=== PATIENT | male | born 1990 | race Two or more races ===

== ENCOUNTER 2017-02-17 08:19 | Day surgery (SDC) | payer OTHER ==
[~2017-02-17] VITALS: Ht 175.3 cm; Wt 87.5 kg
[2017-02-17 08:39] VITALS: BP 151/91
[2017-02-17 10:50] VITALS: BP 137/76
== END 2017-02-17 10:50 | disposition home or self-care (01) ==
LOC: DS 08:19 → GI 10:00 → DS 10:50 → GI 11:30 → OR 11:30
PROVIDERS: Internal Medicine Gastroenterology
PROC: 0DJD8ZZ Inspection of Lower Intestinal Tract, Via Natural or Artificial Opening Endoscopic (ICD-10-PCS; principal; 2017-02-17 10:00)
DX: K57.90 Diverticulosis of intestine, part unspecified, without perforation or abscess without bleeding (principal); K64.8 Other hemorrhoids
CPT/HCPCS: 45378; J1200; J2250; J2310; J3010; J3490

== ENCOUNTER 2017-07-28 14:53 | Inpatient (IN) | payer OTHER ==
[~2017-07-28] VITALS: Ht 175.3 cm; Wt 91.0 kg
--- NOTE | 2017-07-28 15:09 | NUR ---
PT AMBULATORY WITH STEADY GAIT TO RESTROOM AND BACK TO TREATMENT AREA WITH NO INCIDENCE, MSE COMPLETED BY DR. WANG
--- NOTE | 2017-07-28 15:11 | NUR ---
PT BIB FAMILY MEMBER FOR C/O RUQ ABD PAIN X 2 DAYS WHICH PT REPORTS HAS BEEN CONSTANT, PT STS "I FELT SHORT OF BREATH AT NIGHT LAST NIGHT FROM THE PAIN AFTER LAYING FLAT" PT DENIES EVER FEELING SOB AFTERWARDS, ABD SOFT, SLIGHT TENDERNESS NOTED UPON PALPATION TO RUQ AND EPIGASTRIC AREA OF ABD, PT DENIES N/V/D, REPORTS CONSTIPATION WITH LBM THIS MORNING STATING WAS DIFFICULT, PT DENIES URINARY SX, DENIES ANY PAST SURGICAL HX, PT AAOX4, RESP EVEN AND UNLABORED, IN NO ACUTE DISTRESS, WILL CONTINUE TO MONITOR
--- NOTE | 2017-07-28 15:21 | NUR ---
PT MEDICATED PER MD ORDER, PLEASE SEE EMAR, PT TOLERATED WELL, PT RESTING IN BED IN A POSITION OF COMFORT WITH FAMILY MEMBER AT BEDSIDE, WARM BLANKET PROVIDED, CALL LIGHT WITHIN REACH, WILL CONTINUE TO MONITOR
--- NOTE | 2017-07-28 15:39 | NUR ---
PORTABLE ULTRASOUND AT BEDSIDE AT THIS TIME
[2017-07-28 15:46] LABS: BASOPHIL % 0.1 % (0-2); PLATELET COUNT 251 x10^3mcL (130-400); RED CELL DISTRIBUTION WIDTH 12.9 % (11.5-14.5)
[2017-07-28 15:59] LABS: CALCIUM 8.8 mg/dL (8.5-10.1); CARBON DIOXIDE 29.2 mmol/L (21-32); CHLORIDE SERUM 101 mmol/L (98-107); CREATININE SERUM 0.9 mg/dL (0.7-1.3); GFR1 > 60 mL/min; GLUCOSE SERUM 109 mg/dL (74-106); POTASSIUM SERUM 4.1 mmol/L (3.5-5.1); SODIUM SERUM 139 mmol/L (136-145)
[2017-07-28 16:04] LABS: ALBUMIN 3.7 g/dL (3.4-5.0); ALKALINE PHOSPHATASE 93 U/L (46-116); ALT/SGPT 25 U/L (16-63); AMYLASE 50 U/L (25-115); AST/SGOT 16 U/L (15-37); BILIRUBIN TOTAL 0.8 mg/dL (0.20-1.00); LIPASE 86 IU/L (73-393); TOTAL PROTEIN, SERUM 7.8 g/dL (6.4-8.2)
--- NOTE | 2017-07-28 17:08 | NUR ---
PT TAKEN TO CT VIA GURNEY AND BACK TO TREATMENT AREA WITH NO INCIDENCE
--- NOTE | 2017-07-28 17:31 | NUR ---
PT DENIES ANY PAIN AT THIS TIME, PT AMBULATORY WITH STEADY GAIT TO RESTROOM AT THIS TIME
--- NOTE | 2017-07-28 17:36 | NUR ---
PT BACK TO TREATMENT AREA WITH NO INCIDENCE, PT RESTING BACK IN BED IN A POSITION OF COMFORT WITH FAMILY MEMBER AT BEDSIDE, CALL SUHAS GANDHI, WILL CONTINUE TO MONITOR
--- NOTE | 2017-07-28 18:37 | NUR ---
PT RESTING IN BED IN A POSITION OF COMFORT WITH FAMILY MEMBER AT BEDSIDE, IN NO ACUTE DISTRESS, CALL LIGHT WITHIN REACH
[2017-07-28] MEDS ORDERED: PRINIVIL20 MG PO (18:47)
[2017-07-28] MEDS ORDERED: ZESTRIL20 MG PO (18:48)
[2017-07-28] MEDS ORDERED: OMEPRAZOLE40 M1 PO (18:48)
--- NOTE | 2017-07-28 19:03 | NUR ---
CHANGE OF SHIFT REPORT GIVEN BY MADALYN BALBUENA TO CONTINUE CARE.
--- NOTE | 2017-07-28 19:43 | NUR ---
REPORT GIVEN TO MANE TO ASSUME CARE OF PT
--- NOTE | 2017-07-28 19:50 | NUR ---
RECEIVED PT FROM ED VIA GUERNEY, CAME IN DUE TO ABDOMINAL PAIN X2 DAYS. AAOX4. NO SOB NOTED. DENIES CHEST PAIN/PRESSURE, SINUS TACHYCARDIA ON THE MONITOR, HR AT 106. C/O 1/10 ABDOMINAL PAIN. DENIES NAUSEA/VOMITING. MOTHER AT BEDSIDE. SIDE RAILS UPX2. CALL LIGHT ON REACH. MEDICAL STUDENT AT BEDSIDE. LUTX=780.2, COOLING MEASURES INITIATED. ENDORSED TO PRIMARY NURSE SUPIN FOR CONTINUITY OF CARE.
[2017-07-28 19:53] VITALS: BP 148/85
[2017-07-28 19:57] LABS: FREE T4 1.09 ng/dL (0.76-1.46); FREE THYROXINE INDEX 3.1 ug/dL (1.4-4.5); T3 TOTAL 1.18 ng/mL; T4(THYROXINE) 8.8 ug/dL (4.7-13.3)
[2017-07-28 20:00] VITALS: Ht 175.3 cm; Wt 91.0 kg
--- NOTE | 2017-07-28 20:23 | NUR ---
KEPT NPO, DISCUSSED PLAN OF CARE WITH PATIENT, STS PAIN IS TOLERABLE AT THIS TIME.
[2017-07-28 20:26] LABS: CHOLESTEROL/HDL RATIO 2.7; MAGNESIUM 2.1 mg/dL (1.8-2.4); PHOSPHOROUS 3.9 mg/dL (2.5-4.9)
--- NOTE | 2017-07-28 21:54 | NUR ---
ULTRASOUND OF ABDOMEN ONGOING AT BEDSIDE.
--- NOTE | 2017-07-28 22:01 | NUR ---
IVF NS AT 100ML/HR AND UNASYN IVPB STATED, NO ADVERSE REACTION NOTED.
--- NOTE | 2017-07-28 23:15 | NUR ---
NOTED ORDER FOR ATIVAN 1MG IV X1, PATIENT APPEARS CALM, REFUSED ATIVAN AT THIS TIME.
[2017-07-29 05:52] VITALS: BP 123/63
[2017-07-29 06:12] LABS: BASOPHIL % 0.2 % (0-2); PLATELET COUNT 232 x10^3mcL (130-400); RED CELL DISTRIBUTION WIDTH 13.3 % (11.5-14.5)
[2017-07-29 06:26] LABS: CALCIUM 8.6 mg/dL (8.5-10.1); CHLORIDE SERUM 106 mmol/L (98-107); GFR1 > 60 mL/min; GLUCOSE SERUM 92 mg/dL (74-106); MAGNESIUM 2.3 mg/dL (1.8-2.4); PHOSPHOROUS 4.2 mg/dL (2.5-4.9); POTASSIUM SERUM 4.2 mmol/L (3.5-5.1); SODIUM SERUM 143 mmol/L (136-145)
--- NOTE | 2017-07-29 06:30 | NUR ---
AFEBRILE, STS PAIN IS TOLERABLE, REFUSED PAIN MEDS OFFERRED, KEPT NPO, VOIDS FREELY, BRP, ALL DUE MEDS GIVEN, IVF NS AT 100ML/HR INFUSING WELL.
[2017-07-29 06:49] LABS: UA SPECIFIC GRAVITY >=1.030 (1.005-1.035); microscopic required? YES; urine erythrocyte NEGATIVE (NEGATIVE)
[2017-07-29 06:59] LABS: AMPHETAMINE QUAL UR NONE DETECTED (NEG <=1000)
--- NOTE | 2017-07-29 07:04 | NUR ---
ALERT AND ORIENTED. REPORTS 1/10 PAIN IN AROUND BLADDER AREA, DENIES NAUSEA. IVF NS @ 100 TO LAC WNL. TELE 13. SCDS. LBM THIS AM. VERBALIZED UNDERSTANDING STRICT NPO. CALL LIGHT WITHIN REACH.
--- NOTE | 2017-07-29 08:40 | NUR ---
HEPLOCKED FOR OR. RENITA WIPES COMPLETED. WITNESSED SIGNATURE ON CONSENT FOR SURGERY. MOM BEDSIDE. REPORT GIVEN TO OR NURSE.
[2017-07-29 08:44] VITALS: BP 132/78
--- NOTE | 2017-07-29 08:58 | NUR ---
OFF FLOOR VIA GUERNY TO OR. MOM ACCOMPANIED PATIENT.
--- NOTE | 2017-07-29 10:49 | NUR ---
RECEIVED REPORT FROM ORMariia MALDONADO AND SPOKE WITH DR SMALLWOOD FOR TRANSFER ORDERS.
[2017-07-29 11:00] VITALS: BP 135/67
--- NOTE | 2017-07-29 11:07 | NUR ---
RECEIVED BACK FROM OR TO ROOM 207B. THREE BANDAIDS IN PLACE, ONE WITH SMALL AMOUNT OF DRAINAGE NOTED. IVF NS @ 100 TO LAC WNL. TELE 13. SCDS IN PLACE. VERBALIZED UNDERSTANDING OF SIGNS AND SYMPTOMS TO REPORT. FAMILY BEDSIDE. CALL LIGHT WITHIN REACH.
--- NOTE | 2017-07-29 12:44 | NUR ---
PAGED DR SMALLWOOD FOR CLEAR LIQUIDS.
--- NOTE | 2017-07-29 12:47 | NUR ---
SPOKE WITH DR SMALLWOOD CONCERNING DIET.
[2017-07-29 13:01] VITALS: BP 118/79
--- NOTE | 2017-07-29 14:14 | NUR ---
RESTING IN BED. REPORTS PAIN DECREASED TO 2/20 AFTER NORCO. STARTED ON CLEAR LIQUIDS, REPORTS FEELING BLOATED. VERBALIZED UNDERSTANDING TO STOP WITH CLEARS AND WAIT FOR A WHILE BEFORE STARTING AGAIN.
--- NOTE | 2017-07-29 15:35 | NUR ---
AMBULATED WITH RN TO BATHROOM TO VOID. BACK TO BED, SCDS IN PLACE, IVF INFUSING. REPORTS A BLOATING FEELING AND WOULD LIKE MEDICATION FOR GAS. MOM BEDSIDE. CALL LIGHT WITHIN REACH.
--- NOTE | 2017-07-29 15:37 | NUR ---
PAGED DR SMALLWOOD FOR GAS MEDICATION.
--- NOTE | 2017-07-29 15:38 | NUR ---
SPOKE WITH DR SMALLWOOD ABOUT REQUEST FOR GAS MEDICATION.
--- NOTE | 2017-07-29 16:22 | NUR ---
MEDICATED WITH NORCO FOR 5/10 PAIN AND MYLICON FOR BLOATED FEELING.
[2017-07-29 17:01] VITALS: BP 125/76
--- NOTE | 2017-07-29 19:14 | NUR ---
TOLERATED FULL LIQUID DIET. AMBULATED IN HALLWAY. NORCO RECEIVED EARLIER IS PM HELPING FOR ABD OP SITE PAIN. PT HAS DECLINED PAIN MED OFFER X 2. NS INFUSING 100 CC HOUR. NOT PASSING GAS YET. MINIMAL ASSIST WITH ADL'S. WEARS SCD'S. BREATHING FREELY ONRA. USES I.S. CALL LIGHT WITHIN REACH.
--- NOTE | 2017-07-29 19:25 | NUR ---
SEEN SITTING AT BEDSIDE AAOX4. STS SURGICAL SITE PAIN TO ABDOMEN IS TOLERABLE. STS HAS NOT YET PASSING GAS, JUST BURPING. DENIES NAUSEA, TOLERATED TO CLEAR LIQUID DIET WELL. STS VOIDS FREELY. AMBULATORY WELL. IVF NS INFUSING WELL TO LAC IV SITE. PLAN OF CARE DISCUSSED. CALL LIGHT PLACED WITHIN EASY REACH. SIDERAILS UP X2.
--- NOTE | 2017-07-29 21:00 | NUR ---
NORCO 1TAB PO GIVEN FOR SURGICAL SITE PAIN. WILL CONTINUE TO MONITOR.
[2017-07-29 21:37] VITALS: BP 124/73
--- NOTE | 2017-07-29 22:30 | NUR ---
STS PAIN IS RELIEF.
[2017-07-30 05:54] VITALS: BP 112/56
--- NOTE | 2017-07-30 06:42 | NUR ---
AFEBRILE THROUGHOUT THE NIGHT, NORCO GIVEN X1 FOR PAIN WITH GOOD RELIEF. AMBULATORY WELL. STS PASSING GAS AND BURPING. DENIES NAUSEA. BANDAID X3 TO ABDOMEN CDI. ALL DUE MEDS GIVEN.
[2017-07-30 07:02] LABS: CALCIUM 8.7 mg/dL (8.5-10.1); CARBON DIOXIDE 31.1 mmol/L (21-32); CHLORIDE SERUM 107 mmol/L (98-107); CREATININE SERUM 0.8 mg/dL (0.7-1.3); GFR1 > 60 mL/min; GLUCOSE SERUM 94 mg/dL (74-106); PHOSPHOROUS 3.5 mg/dL (2.5-4.9); POTASSIUM SERUM 4.2 mmol/L (3.5-5.1); SODIUM SERUM 141 mmol/L (136-145)
[2017-07-30 07:10] LABS: BASOPHIL % 0.2 % (0-2); PLATELET COUNT 225 x10^3mcL (130-400); RED CELL DISTRIBUTION WIDTH 13.4 % (11.5-14.5)
--- NOTE | 2017-07-30 07:14 | NUR ---
UP AMBULATING IN HALLWAY WITH MOM. REPORTS POSITIVE FLATUS, NO BM. REPORTS 2-3/10 PAIN WHEN GETTING OUT OF BED, BUT TOLERATING. NS @ 100 TO LAC IV WNL. TELE 17. SCDS AND IS USE TO BE ENCOURAGED WHEN IN BED.
--- NOTE | 2017-07-30 07:37 | NUR ---
BACK IN BED, SCDS PLACED. TOOK AM MEDS AND PAIN MEDICATION WITHOUT DIFFICULTY. THREE BANDAIDS TO ABDOMEN WITH OLD DRAINAGE, LEFT BANDAID AREA BRUISED. TELE 13. MOM BEDSIDE. TO START FULL LIQUIDS THIS AM. CALL LIGHT WITHIN REACH.
--- NOTE | 2017-07-30 08:37 | NUR ---
ASLEEP, RESP EVEN AND UNLABORED.
[2017-07-30 09:42] VITALS: BP 115/59
[2017-07-30 10:04] VITALS: BP 115/59
--- NOTE | 2017-07-30 10:32 | NUR ---
UP AMBULATING IN HALLWAY.
--- NOTE | 2017-07-30 12:06 | NUR ---
REPORTING PAIN AND BLOATING FEELING. MEDICATED WITH NORCO AND MYLICON. PAGED AND SPOKE WITH DR SMALLWOOD TO SEE IF DIET TO BE ADVANCED.
--- NOTE | 2017-07-30 12:50 | NUR ---
STARTED ON REGULAR DIET. VERBALIZED UNDERSTANDING TO CALL IF HAS INCREASED PAIN OR NAUSEA.
[2017-07-30 13:00] VITALS: BP 115/72
[2017-07-30] MEDS ORDERED: SIMETHICONE80 MG CH (13:27)
--- NOTE | 2017-07-30 14:21 | NUR ---
REMOVED BANDAIDS AND CLEANED STAB WOUNDS. BLOOD TINGED FLUID FROM LEFT STAB AND LOWER STAB. EXTENSIVE BRUISING AROUND LEFT STAB WOUND. PHOTO TAKEN AND NEW BANDAIDS APPLIED. ADDITIONAL BAND AIDS GIVEN TO MOTHER. PHOTO SHOWN TO DR SMALLWOOD DUE TO BRUISING.
--- NOTE | 2017-07-30 14:56 | NUR ---
DR SMALLWOOD IN TO SEE PATIENT AND MAKE AWARE WILL BE STAYING NIGHT TO MONITOR BRUISING AT INCISION SITE. DR SMALLWOOD OUTLINED BRUISING WITH MARKER. SCDS IN PLACE AT THIS TIME. HAS BEEN UP AMBULATING IN [place] THROUGHOUT SHIFT.
--- NOTE | 2017-07-30 15:55 | NUR ---
ASLEEP, RESP EVEN AND UNLABORED. PARENTS BEDSIDE.
[2017-07-30 16:53] VITALS: BP 139/87
--- NOTE | 2017-07-30 16:54 | NUR ---
REPORTS FEELING WARM AND HAVING CRAMPING ON LEFT SIDE OF ABDOMEN. ORAL TEMP WNL. CONTINUE TO MONITOR.
--- NOTE | 2017-07-30 16:56 | NUR ---
USES IS WITHOUT PROMPTING.
--- NOTE | 2017-07-30 17:56 | NUR ---
MOM BEDSIDE, ASSISTED WITH DINNER SET UP.
--- NOTE | 2017-07-30 18:47 | NUR ---
EATING DINNER SLOWLY, NO DISTRESS NOTED. REPORTS OCCASIONAL CRAMPING LUQ.
--- NOTE | 2017-07-30 18:52 | NUR ---
UP AMBULATING IN HALLWAY WITH FAMILY.
--- NOTE | 2017-07-30 19:30 | NUR ---
PT A/O X4 WITH FAMILY AT BEDSIDE. TELE #13, NSR AT 75, DENIES CHEST PAIN. PULSES PALPABLE, NO EDEMA PRESENT. LUNG SOUNDS CTA, BREATHIN ON RA, NO RESP DISTRESS OBSERVED, PT DENIES SOB. ABD SOFT AND FLAT, BOWEL TONES ACTIVE, DENIES N/V. PT IS S/P LAP APPY. PT ADMITS TO PASSING GAS AND VOIDING, DENIES HAVING A BM. VOIDS ADEQUATELY, BRP. BANDAIDS X3 NOTED TO ABD, NO ACTIVE BLEEDING OBSERVED. BRUISE NOTED TO LLQ, OUTLINED. PT DENIES PAIN AT THIS TIME. IVF INFUSING WELL TO LFA. BED IN LOWEST SETTINGS, SIDE RAILS UP X2, CALL LIGHT WITHIN REACH. WILL CONTINUE TO MONITOR.
[2017-07-30 22:38] VITALS: BP 118/71
--- NOTE | 2017-07-31 00:30 | NUR ---
PT ASLEEP AT THIS TIME, BUT EASILY AROUSABLE. MOTHER IS AT BEDSIDE. NO RESP DISTRESS NOTED, NO SIGNS OF PAIN OBSERVED. IVF INFUSING WELL. CALL LIGHT WITHIN REACH. WILL CONTINUE TO MONITOR.
--- NOTE | 2017-07-31 01:25 | NUR ---
TELE #13 REMOVED AND RETURNED TO TELE PROFESSOR OF POLITICAL SCIENCE.
--- NOTE | 2017-07-31 03:16 | NUR ---
PT AMBULATING IN HALLWAY WITH MOTHER. PT DENIES PAIN AT THIS TIME, NO RESP DISTRESS NOTED. WILL CONTINUE TO MONITOR.
--- NOTE | 2017-07-31 06:26 | NUR ---
PT SLEPT WELL THROUGHOUT THE NIGHT. PT IS SITTING UP IN BED, WATCHING TV WITH MOTHER AT BEDSIDE. PT DENIES PAIN AT THIS TIME. PT DENIES HAVING A BM. IVF INFUSING WELL. ALL NEEDS MET. CALL LIGHT WITHIN REACH. WILL ENDORSE CARE TO AM NURSE.
[2017-07-31 06:27] VITALS: BP 121/78
--- NOTE | 2017-07-31 08:00 | NUR ---
A/A/OX4. AMBULATED IN [place] [address]. NO RESP DISTRESS ON RA. DENIED CHEST PAIN. S/P OF LAP APPY ON 07/29. STATED HAD PASSING GAS. NO BM YET. TOLERATED REGULAR DIET BREAKFAST. NO N/V. DENIED ABD PAIN. STATED ABD INCISIONAL PAIN ON 10/04, TOLERATED LEVEL. IVF OF NS 100CC/HR. IV SITE TO LAC INTACT. VOID FREELY. ABD INCISIONS X3 WITH BRAYAN AND COVERED WITH BANDAID. BRUISE AROUND LLQ ABD INCISION SEEN. NO ACTIVE BLEEDING. ENCOURAGE TO AMBULATE TOLERATED. CALL LIGHT IN REACH.
--- NOTE | 2017-07-31 08:25 | NUR ---
DR. VASQUEZ AND MEDICAL TEAM MADE MORNING ROUND. PLANOF CARE DISCUSSED WITH PATIENT, INCLUDED WITH POST-OP CARE AND POSSIBLE DISCHARGE IF C;EARED WITH SURGEON. PATIENT AGREED WITH PLAN OF CARE.
[2017-07-31 08:55] VITALS: BP 144/91
[2017-07-31 12:23] VITALS: BP 136/85
[2017-07-31 13:14] VITALS: BP 136/85
--- NOTE | 2017-07-31 14:30 | NUR ---
PASSING GAS. TOLERATED REGULAR DIET. AMBULATED IN [address] [address]. INCISIONAL PAIN ON TOLERATED LEVEL. D/C TO HOME PER MOHIT. INSTRUCTION GIVEN. INCISIONAL CARE GIVEN. PHOTO TAKEN YESTERDAY. IV D/C'D. OVER NEEDLE CATHETER INTACT. CONDITION STABLE.
== END 2017-07-31 14:49 | disposition home or self-care (01) | DRG 710 ==
LOC: ED 14:53 → MU 18:55 → DU 18:55 → MU 07-31 05:28
PROVIDERS: Emergency Medicine; Student in an Organized Health Care Education/Training Program; Surgery; ADMIT Family Medicine Sports Medicine
PROC: 0DTJ4ZZ Resection of Appendix, Percutaneous Endoscopic Approach (ICD-10-PCS; principal; 2017-07-29 10:30)
DX: A41.9 Sepsis, unspecified organism (principal); N17.0 Acute kidney failure with tubular necrosis; R65.20 Severe sepsis without septic shock; K35.80 Unspecified acute appendicitis; K21.9 Gastro-esophageal reflux disease without esophagitis; R80.9 Proteinuria, unspecified; I10 Essential (primary) hypertension; K57.30 Diverticulosis of large intestine without perforation or abscess without bleeding; K64.8 Other hemorrhoids; Z68.29 Body mass index [BMI] 29.0-29.9, adult
CPT/HCPCS: 83880; 84439; 94150; J0295; J0330; J1170; J1885; J2405; J2704; J2710; J3010; J3490; J7030; J7120; Q0092

== ENCOUNTER 2017-11-08 10:11 | Emergency (ER) | payer OTHER ==
[~2017-11-08] VITALS: Ht 175.3 cm; Wt 89.0 kg
[~2017-11-08 10:11] MED LIST: OMEPRAZOLE40 M1 PO; PRINIVIL20 MG PO; SIMETHICONE80 MG CH; ZESTRIL20 MG PO
[2017-11-08 10:13] VITALS: Ht 175.3 cm; Wt 89.0 kg
[2017-11-08 11:43] VITALS: BP 134/76
== END 2017-11-08 11:43 | disposition home or self-care (01) ==
LOC: ED 10:11
DX: S00.03XA Contusion of scalp, initial encounter (principal); I10 Essential (primary) hypertension; W18.39XA Other fall on same level, initial encounter; Y93.89 Activity, other specified; Y92.89 Other specified places as the place of occurrence of the external cause; Y99.8 Other external cause status

== ENCOUNTER 2018-05-07 11:43 | Emergency (ER) | payer OTHER ==
[~2018-05-07] VITALS: Ht 175.3 cm; Wt 94.8 kg
[2018-05-07 11:53] VITALS: Ht 175.3 cm; Wt 94.8 kg
[2018-05-07 12:35] VITALS: BP 132/67
== END 2018-05-07 12:35 | disposition home or self-care (01) ==
LOC: ED 11:43
DX: S13.4XXA Sprain of ligaments of cervical spine, initial encounter (principal); V89.2XXA Person injured in unspecified motor-vehicle accident, traffic, initial encounter; Y93.I9 Activity, other involving external motion; Y92.89 Other specified places as the place of occurrence of the external cause; Y99.8 Other external cause status; I10 Essential (primary) hypertension; K21.9 Gastro-esophageal reflux disease without esophagitis